=== PATIENT | female | born 1940 | race Caucasian/White ===

== ENCOUNTER 2024-10-30 11:28 | Emergency (ER) | payer MEDICARE, BC ==
[~2024-10-30] VITALS: Ht 162.6 cm; Wt 46.7 kg
[~2024-10-30 11:28] MED LIST: GABA300C PO; MVI
[2024-10-30 12:45] VITALS: O2SAT 92
[2024-10-30] MEDS ORDERED: LATA2.5D15 EACHEYE (12:49)
[2024-10-30 12:50] LABS: BASOPHILS # (AUTO) 0.1 K/UL (0.0-0.2); BASOPHILS % (AUTO) 0.5 % (0.0-2.0); EOSINOPHILS % (AUTO) 0.2 % (0.0-7.0); HEMATOCRIT 41.3 % (31.2-41.9); LYMPHOCYTES # (AUTO) 1.8 K/uL (0.8-4.8); LYMPHOCYTES % (AUTO) 15.2 % (20.5-51.5); MEAN CORPUSCULAR HEMOGLOBIN 31.2 uug (24.7-32.8); MEAN CORPUSCULAR HGB CONC 34 g/dL (32.3-35.6); MEAN CORPUSCULAR VOLUME 92.4 fL (75.5-95.3); MONOCYTES # (AUTO) 0.7 K/uL (0.1-1.30); NEUTROPHILS # (AUTO) 9.2 K/uL (1.8-8.9); NEUTROPHILS % (AUTO) 78.1 % (38.5-71.5); PLATELET COUNT (AUTO) 361 K/uL (179-408); RED BLOOD CELL COUNT(AUTO) 4.47 MIL/uL (3.63-4.92); RED CELL DISTRIBUTION WIDTH 13.1 % (12.3-17.7); WHITE BLOOD COUNT (AUTO) 11.7 K/uL (3.8-11.8)
[2024-10-30 12:55] VITALS: O2SAT 98
[2024-10-30 13:16] LABS: DIFFERENTIAL COMMENT 1
[2024-10-30 13:17] LABS: CARBON DIOXIDE 29 mmol/L (21-32); CHLORIDE 105 mmol/L (98-107); GLUCOSE 108 mg/dL (74-106); SODIUM SERUM 145 mmol/L (136-145)
[2024-10-30 13:18] LABS: CREATININE 0.7 mg/dL (0.6-1.3); UREA NITROGEN, BLOOD 9 mg/dL (7-18)
[2024-10-30 13:22] LABS: ALANINE AMINOTRANSFERASE 35 U/L (14-59); ALBUMIN 3.7 g/dL (3.4-5.0); ALKALINE PHOSPHATASE 88 U/L (50-136); ASPARTATE AMINOTRANSFERASE 24 U/L (15-37); BILIRUBIN,DIRECT 0.2 mg/dL (0.0-0.2); BILIRUBIN,TOTAL 0.6 mg/dL (0.2-1.0); CALCIUM 9.4 mg/dL (8.5-10.1); NT-PRO BNP 1416 pg/mL (0-125); TOTAL PROTEIN, SERUM 7.4 g/dL (6.4-8.2)
[2024-10-30] MEDS ORDERED: ALBUTEROL SULFATE 2.5 MG/3 ML NEBU ONE (14:00)
[2024-10-30] MEDS ORDERED: ALBU6.7H9 INH (14:11)
[2024-10-30] MEDS ORDERED: PRED50TA PO (14:11)
[2024-10-30] MEDS ORDERED: DOXY100C5 PO (14:14)
[2024-10-30] MEDS: ALBUTEROL SULFATE 2.5 MG/3 ML NEBU NEB ONE (14:17)
[2024-10-30] MEDS ORDERED: DOXYCYCLINE HYCLATE 100 MG TABLET ONE (14:25)
[2024-10-30] MEDS ORDERED: predniSONE 50 MG TABLET ONE (14:26)
[2024-10-30] MEDS: DOXYCYCLINE HYCLATE 100 MG TABLET PO ONE (14:28)
[2024-10-30] MEDS: predniSONE 50 MG TABLET PO ONE (14:28)
[2024-10-30 14:33] VITALS: BP 147/91; TEMP 98; O2SAT 93
== END 2024-10-30 14:34 | disposition home or self-care (01) ==
LOC: ER 11:29
DX: J18.9 Pneumonia, unspecified organism (principal); G89.29 Other chronic pain; Z79.52 Long term (current) use of systemic steroids; Z20.822 Contact with and (suspected) exposure to COVID-19; Z79.899 Other long term (current) drug therapy; Z96.659 Presence of unspecified artificial knee joint
CPT/HCPCS: 99285; 71045; 87426; 87804 ×2; 80076; 80048; 83880; 85025; 84145; 85730; 87040 ×2; 84484; 36415; 94640; 93005; 83605; J7512; A4606; A4663

== ENCOUNTER 2025-06-22 10:15 | Inpatient (IN) | payer MEDICARE, BC ==
[~2025-06-22] VITALS: Ht 160 cm; Wt 45.4 kg
[~2025-06-22 10:15] MED LIST changes: +ALBU6.7H9 INH; +DOXY100C5 PO; -GABA300C PO; +LATA2.5D15 EACHEYE; +PRED50TA PO
[2025-06-22 10:52] LABS: PLATELET COUNT (AUTO) 295 K/uL (179-408); RED BLOOD CELL COUNT(AUTO) 4.03 MIL/uL (3.63-4.92); RED CELL DISTRIBUTION WIDTH 14.9 % (12.3-17.7); WHITE BLOOD COUNT (AUTO) 7.0 K/uL (3.8-11.8)
[2025-06-22 11:00] LABS: CREATININE 0.7 mg/dL (0.6-1.3); SODIUM SERUM 138 mmol/L (136-145); UREA NITROGEN, BLOOD 23 mg/dL (7-18)
[2025-06-22 11:06] LABS: ASPARTATE AMINOTRANSFERASE 108 U/L (15-37); TOTAL PROTEIN, SERUM 6.4 g/dL (6.4-8.2)
[2025-06-22] MEDS ORDERED: NITROGLYCERIN OINT 1 GM PACKET TP ONE (11:47)
[2025-06-22] MEDS ORDERED: ASPIRIN 325 MG TABLET ONE (11:47)
[2025-06-22] MEDS: ASPIRIN 325 MG TABLET PO ONE (12:04)
[2025-06-22] MEDS: NITROGLYCERIN OINT 1 GM PACKET TP ONE (12:04)
[2025-06-22] MEDS ORDERED: SWABABLE VALVE TRANSFER SET EA MC ONE (12:15)
[2025-06-22] MEDS ORDERED: IOHEXOL 350 100 ML INFUS..BTL ONE (12:15)
[2025-06-22] MEDS ORDERED: IV NORMAL SALINE 250 ML IV ONE (12:16)
[2025-06-22] MEDS ORDERED: ACETAMINOPHEN 325 MG TABLET PO PRN (13:15)
[2025-06-22] MEDS ORDERED: REMEDY ESSENTIAL ZINC PASTE 113 GM TP PRN (13:15)
[2025-06-22] MEDS ORDERED: APIXABAN 5 MG TABLET ONE (13:21)
[2025-06-22] MEDS: APIXABAN 5 MG TABLET PO ONE (13:24)
[2025-06-22 13:30] VITALS: BP 109/81
[2025-06-22] MEDS ORDERED: DOSING PER PHARMACY-ENOXAPARIN XX PRN (13:30)
[2025-06-22] MEDS ORDERED: HYDR-3972 PO (14:53)
[2025-06-22] MEDS ORDERED: HYDROCODONE/APAP 5-325MG TABLET PO PRN (15:15)
[2025-06-22 15:55] VITALS: BP 137/78; TEMP 97.6; O2SAT 94
[2025-06-22] MEDS: ONDANSETRON 4 MG/2 ML VIAL IV PRN (18:33)
[2025-06-22 19:54] VITALS: BP 106/59; TEMP 97.8; O2SAT 91
[2025-06-22] MEDS: LATANOPROST OPHT DROP 2.5 ML BOTTLE EACHEYE SCH (20:48)
[2025-06-22] MEDS: MELATONIN 3 MG TABLET PO SCH (23:25)
[2025-06-22] MEDS: ENOXAPARIN SODIUM 60 MG/0.6 ML DISP.SYRIN SQ SCH (23:29)
[2025-06-23 00:04] VITALS: BP 98/59; TEMP 97.2; O2SAT 93
[2025-06-23] MEDS: PANTOPRAZOLE SODIUM 40 MG TABLET.DR PO SCH (06:27)
[2025-06-23 06:32] VITALS: BP 115/67; TEMP 97.8; O2SAT 98
[2025-06-23 06:40] LABS: PLATELET COUNT (AUTO) 291 K/uL (179-408); RED BLOOD CELL COUNT(AUTO) 4.03 MIL/uL (3.63-4.92); RED CELL DISTRIBUTION WIDTH 14.7 % (12.3-17.7); WHITE BLOOD COUNT (AUTO) 6.7 K/uL (3.8-11.8)
[2025-06-23 07:03] LABS: ASPARTATE AMINOTRANSFERASE 46 U/L (15-37); CREATININE 0.7 mg/dL (0.6-1.3); SODIUM SERUM 141 mmol/L (136-145); TOTAL PROTEIN, SERUM 6.1 g/dL (6.4-8.2); UREA NITROGEN, BLOOD 17 mg/dL (7-18)
[2025-06-23 07:51] VITALS: BP 118/72; TEMP 97.8; O2SAT 95
[2025-06-23] MEDS ORDERED: APIX5TAB4 PO (08:17)
[2025-06-23] MEDS ORDERED: ATOR20TA PO (08:17)
[2025-06-23] MEDS: ASPIRIN 81 MG TAB.CHEW PO SCH (09:30)
[2025-06-23 10:45] VITALS: BP 97/62; TEMP 98; O2SAT 96
[2025-06-23] MEDS ORDERED: APIX5TAB PO (11:05)
[2025-06-23] MEDS ORDERED: MELATONIN 3 MG TABLET PO SCH ×2 (21:00→22:30)
== END 2025-06-23 13:00 | disposition home or self-care (01) | DRG 175 ==
LOC: ER 10:15 → TELE3 13:18
PROVIDERS: ADMIT Nurse Practitioner Family; ATTEND Nurse Practitioner Family
DX: I26.99 Other pulmonary embolism without acute cor pulmonale (principal); I21.A1 Myocardial infarction type 2; I26.94 Multiple subsegmental thrombotic pulmonary emboli without acute cor pulmonale; Z98.1 Arthrodesis status; G89.29 Other chronic pain; R91.8 Other nonspecific abnormal finding of lung field; R61 Generalized hyperhidrosis; M54.50 Low back pain, unspecified; R74.01 Elevation of levels of liver transaminase levels; Z96.653 Presence of artificial knee joint, bilateral; Z87.891 Personal history of nicotine dependence; I70.0 Atherosclerosis of aorta; Z82.49 Family history of ischemic heart disease and other diseases of the circulatory system
CPT/HCPCS: 36415; 71045; 71275; 83735; 84100; 84484; 85025; 85651; 85730; 87328; 93307; A4606; G0378; J1650; J2405; J7040; Q9967